=== PATIENT | male | born 1985 | race African-American/Black ===

== ENCOUNTER 2018-01-14 20:35 | Emergency (ER) | payer OTHER ==
[~2018-01-14] VITALS: Ht 193 cm; Wt 83.9 kg
[2018-01-14 21:47] VITALS: BP 132/77
[2018-01-14] MEDS ORDERED: TETANUS-DIPTH-ACEL PERTUSSIS 0.5ML SYRG IM ONE (22:45)
[2018-01-14] MEDS ORDERED: cefTRIAXone SOD 1,000 MG VL IM ONE (22:45)
[2018-01-14 22:57] LABS: Hepatitis B Surface Antibody Positive
[2018-01-14 23:22] LABS: Hepatitis B Surface Antigen Negative (Negative)
== END 2018-01-14 23:33 | disposition home or self-care (01) ==
LOC: ER 20:35
DX: S61.231A Puncture wound without foreign body of left index finger without damage to nail, initial encounter (principal); W46.0XXA Contact with hypodermic needle, initial encounter; Y93.89 Activity, other specified; Y99.8 Other external cause status; Y92.89 Other specified places as the place of occurrence of the external cause
CPT/HCPCS: 36415; 86703; 86706; 86803; 87340; 90471; 90715; 96372; 99284; J0696